=== PATIENT | male | born 1945 | race Caucasian/White ===

== ENCOUNTER 2025-02-12 14:11 | Emergency (ER) | payer MEDICARE, BC, SELFPAY ==
[2025-02-12 14:24] VITALS: BP 153/75; PULSE 68; RESP 18; TEMP 36.6; O2SAT 98
--- NOTE | 2025-02-12 14:28 | ED.SKABFB ---
HPI - Skin/Abscess/Foreign Bdy General Chief complaint: Skin/Abscess/Foreign Body Stated complaint: Rash Time Seen by Provider: 02/12/25 14:28 Source: patient, family, RN notes reviewed and old records reviewed Mode of arrival: ambulatory Limitations: no limitations History of Present Illness HPI narrative: 79 year old male accompanied by presents to express care with complaints of having rash to his lower anterior legs for the past month which is itchy at night. Patient reports that he gets this rash and it comes and goes usually during the winter months and has not responded to lotions that use to work. Patient has red areas on skin and appears to have scratches throughout the red skin areas, denies any pustule formation or any acute pain reports that it is itchy. Patient reports that he also has been taking a generic antihistamine but hasn't taken it for the last 2-3 days. MD complaint: rash Onset (ago): month(s) (1) Location: LLE (anterior) and RLE (anterior) Severity: moderate Quality: pruritic Treatments prior to arrival: Benadryl and other (Eucerin,Cortisone Gold gipson) Related Data Home Medications ?Medication ?Instructions ?Recorded ?Confirmed ?Last Taken ?Type finasteride 5 mg tablet mg 02/12/25 Unknown History tamsulosin 0.4 mg capsule mg PO 02/12/25 Unknown History Allergies Allergy/AdvReac Type Severity Reaction Status Date / Time No Known Allergies Allergy Verified 02/12/25 14:27 Review of Systems Review of Systems: CONSTITUTIONAL: Denies fever, chills, or sweats. CARDIOVASCULAR: Denies chest pain, palpitations, or edema. RESPIRATORY: Denies cough or dyspnea. SKIN: Reports bilateral red raised rash to bilateral anterior legs for the past month which is itchy. has had similar rash before which normally responds to OTC lotions but has not responded this time. MUSCULOSKELETAL: Denies joint pain or myalgia. NEUROLOGIC: Denies headache, numbness, or weakness. All systems reviewed & are unremarkable except as noted in HPI and below PMFSH Past Medical History Medical History (Updated 02/12/25 @ 15:18 by Jazlyn Amador APRN) BPH (benign prostatic hyperplasia) Social History Social History (Updated 02/12/25 @ 15:16 by Jazlyn L. Marjorie, GEOLOGICAL SAMPLE TESTER) Additional smoking assessment comments: never smoked Alcohol intake: never Substance use type: does not use Comments At time of signature, agree with nursing past medical, surgical, social and family history. There is no relevant family history pertinent to the presenting complaint Exam Narrative: GENERAL: Well-appearing, well-nourished, and in no acute distress. HEAD: Normocephalic, atraumatic. EYES: PERRLA, conjunctivae clear, and EOMI. ENT: Mucous membranes moist. Oropharynx without edema, erythema or lesions. NECK: Supple. No lymphadenopathy CHEST: Clear to auscultation. No respiratory distress.SAO2 98% on room air HEART: Regular rate and rhythm. SKIN: Warm, dry.? Patches of red raised rash to the bilateral anterior aspect of his lower legs which is itchy that appears to have scratches on skin, no drainage noted or pustules. NEURO:? Alert and oriented x3. PSYCH: Normal mood and affect Course Course Emergency Course: Patient is aware of diagnosis, understands and agrees to treatment plan.? Anticipatory guidance given.? Patient agrees to follow-up as directed and is aware of reasons to seek care at the emergency department. Portions of this record may have been created with voice recognition software Level of Care: Express Care Visit Vital Signs Vital signs: Vital Signs Temperature 36.6 C 02/12/25 14:24 Pulse Rate 68 02/12/25 14:24 Respiratory Rate 18 02/12/25 14:24 Blood Pressure 153/75 H 02/12/25 14:24 Pulse Oximetry 98 02/12/25 14:24 Oxygen Delivery Room Air 02/12/25 14:24 Temperature 36.6 C 02/12/25 14:24 Pulse Rate 68 02/12/25 14:24 Respiratory Rate 18 02/12/25 14:24 Blood Pressure 153/75 H 02/12/25 14:24 Pulse Oximetry 98 02/12/25 14:24 Oxygen Delivery Room Air 02/12/25 14:24 Reviewed MDM - Skin/Abscess/Foreign Bdy MDM Narrative Medical decision making narrative: Does not appear at this time to be erythema multiforme, bullous, SJS, TEN; no evidence at this time to suggest RMSF, endocarditis or Lyme disease; patient looks well, nontoxic and is tolerating oral intake; no neurologic signs or symptoms; no headache, photophobia or neck pain; afebrile; appropriate for initial outpatient treatment; discussed the importance of follow-up, patient agrees; question, viral exanthema, contact dermatitis, allergic dermatitis, eczema, urticaria, [ xx ]. No soft palate or uvula edema, no tongue, lip edema or other mucosal involvement, no respiratory compromise, no stridor, no wheezing, no wheezing, no history of syncope, no hypotension, no nausea, vomiting, or diarrhea.? Instructed patient to go to nearest ER immediately for any worsening symptoms including but not limited to: fever, spreading rash, pain, sore throat, headache, dizziness, chest pain, trouble breathing, or any symptoms concerning to the patient. Differential Diagnosis Differential diagnosis: Likely cellulitis, eczema, contact dermatitis and other (acute dry skin) Medical Records Attestation: I reviewed the patient's medical records. Critical Care Time Critical Care Time Critical Care Time: No Discharge Plan Discharge Clinical Impression: Contact dermatitis Qualifiers: Contact dermatitis type: allergic Contact dermatitis trigger: unspecified trigger Qualified Code(s): L23.9 - Allergic contact dermatitis, unspecified cause Patient Disposition: Home Condition: Stable Instructions: Antibiotic Form, Contact Dermatitis (ED) Additional Instructions: Cleanse skin of bilateral anterior lower legs twice daily with antibacterial soap rinse and pat dry. apply triamcinolone ointment BID up to 14 days watch for increasing infection--redness, swelling, drainage Tylenol or Ibuprofen for any fever or pain Zyrtec,Claritin or Fifi daily Pepcid 20 mg daily for 10 days follow up with PCP in 7-10 days for a wound check recheck if develop fever, chills, increasing symptom Go to the ER if your symptoms become worse of if ANY new symptoms develop If no improvement contact dermatology If your symptoms persist, change or worsen significantly before you can contact your personal physician then please, without delay, go to the emergency department for further evaluation. Follow-up with PCP in 7-10 days or sooner if needed Follow up with PCP soon in regards to your blood pressure which is elevated above threshold for referral. Blood pressure above 120/80 may indicate pre-hypertension. 153/75 Patient Language: Sammarinese Prescriptions: New triamcinolone acetonide 0.1 % ointment 1 applic topical BID Qty: 80 1RF Rx Instructions: to bilateral lower anterior legs famotidine [Pepcid] 20 mg tablet 20 mg PO DAILY Qty: 10 0RF No Action tamsulosin 0.4 mg capsule PO finasteride 5 mg tablet Follow-up/Referrals: Tamika,GRICELDA Baker [Primary Care Provider, Unknown] Time of Disposition: 14:49 Quality Jamul Coma Scale Eyes: Open Verbal: Oriented and Alert Motor: Follows Commands Es Coma Total Score: 15
--- OUTSIDE RECORDS SUMMARY | 2025-02-12 15:09 | XMS_ITS | Encounter Summary ---
Author Organization [facility] Address [address] [place] [address] Phone Care Team Providers Care Microbiology Coordinator Name Role Phone Galilea Velásquez MD Primary Care Provider Suhail Plaza MD Unavailable Lorraine Lundberg Primary Care Provider + Satish Raman Unavailable Unavailable Encounter Details Date Type Department Care Team (Late st Contact Info) Description 07/27/2022 Transcribe Orders [facility] Preop/Pacu II [address] [place] [address] Suhail Plaza MD #[address] [address] Pre-op testing (Primary Dx); Right inguinal hernia Social History Tobacco Use Types Packs/Day Years Used Date Smoking Tobacco: Never Smokeless Tobacco: Never Alcohol Use Standard Drinks/Week Comments Yes 0 (1 standard drink = 0.6 oz pur e alcohol) RARELY PHQ-2 Answer Date Recorded Total Score - Questions 1-9 0 03/0 07/2021 Sexually Active Control Partners Comments Yes Female Sex and Gender Information Value Date Recorded Sex Assigned at Not on file Legal Sex Male 10:50 PM CDT Gender Identity Not on file Sexual Orientation Not on file COVID-19 Exposure Response Date Recorded In the last 10 days, have yo u been in contact with someone who was confirmed or suspected to have Coronavirus/COVID-19? No / Unsure 07/27/2022 1:34 PM CDT documented as of this encounter Plan of Treatment Not on file documented as of this encounter Results * (ABNORMAL) BASIC METABOLIC PANEL W/ CALCIUM TOTAL (07/28/2022 1:54 PM CDT) SODIUM 143 136 - 144 mmol/L 07/28/2022 2:27 PM CDT [facility] POTASSIUM 4.4 3.5 - 5.1 mmol/L 07/28/2022 2:27 PM CDT [facility] CHLORIDE 108 100 - 110 mmol/L 07/28/2022 2:27 PM CDT [facility] CO2, VENOUS 29 22 - 32 mmol/L 07/28/2022 2:27 PM CDT [facility] ANION GAP 10.4 8.0 - 20.0 mmol/L 07/28/2022 2:27 PM CDT [facility] GLUCOSE 102(H) 70 - 99 mg/dL 07/28/2022 2:27 PM CDT [facility] BUN 17 8 - 23 mg/dL 07/28/2022 2:27 PM CDT [facility] CREATININE, BLOOD 1.02 0.80 - 1.30 mg/dL 07/28/2022 2:27 PM CDT [facility] BUN/CREATININE RATIO 17 12 - 20 ratio 07/28/2022 2:27 PM CDT [facility] CALCIUM 8.8(L) 8.9 - 10.3 mg/dL 07/28/2022 2:27 PM CDT [facility] IS THE PATIENT REQUIRED TO BE FASTING? No 07/28/2022 2:27 PM CDT [facility] GFR, ESTIMATED >60 >=60 07/28/2022 2:27 PM CDT [facility] Comment: Creatinine Clearance is the preferred criteria for selecting drug dose adjustments in renally impaired patients. The GFR is provided as additional pertinent clinical information. GFR is reported in mL/min/1.73 sq m. Calculation based on the Chronic Kidney Disease Epidemiology Collaboration (CKD- EPI) equation refit without adjustment for race. GFR, EST. >60 >=60 023 2:27 PM CDT [facility] GFR, EST. NONAFRICAN >60 >=60 07/28/2022 2:27 PM CDT [facility] Blood Venipuncture / Unknown 07/28/2022 1:54 PM CDT 07/28/2022 2:09 PM CDT us Suhail Plaza MD CHEMISTRY ORDERABLES Final Resul t [facility] [address] [place] [address] documented in this encounter Visit Diagnoses Diagnosis Pre-op testing- Primary Preoperative examination, unspecified Right inguinal hernia Inguinal hernia without mention of obstruction or gangrene, unilateral or unspecified, (not specified as recurrent) documented in this encounter Additional Health Concerns Assessment Noted Time PHQ-9 Depression Total Score: 0 07/21/19 17 1:00 PM CDT documented as of this encounter Care Teams Microbiology Coordinator Relationship Specialty Start Date End Date Galilea Velásquez MD PCP - General Family Medicine 07/20/16 07/27/23 Lorraine Lundberg PAC [address] [place] [address] PCP - General Physician Pattern Technician 07/28/23 Suhail Plaza MD [address] [address] Consulting Physician Colon and Rectal Surgery 07/20/22 Satish Raman 08/30/23 08/30/23 documented as of this encounter
--- OUTSIDE RECORDS SUMMARY | 2025-02-12 15:09 | XMS_ITS | Clinical Summary ---
Author Organization [facility] Address [address] [place] [address] Care Team Providers Care Blister Packing Machine Tender Name Role Phone Moises Flor MD Unavailable Lorraine Lundberg Primary Care Provider [phone] Allergies No known active allergies Medications ibuprofen (ADVIL,MOTRIN) 800 mg tablet take 1 tablet by oral route 3 times every day with food 0 0 08/26/2015 Active tamsulosin (FLOMAX) 0.4 mg extended release capsule 0.4 mg Active Active Problems Problem Noted Date Diagnosed Date Enlarged prostate with urinary obstruction 05/23 Overview (05/23/2021): Added automatically from request for surgery [id number] Renal cell carcinoma of left kidney 05/23/2021 Overview (05/23/2021): Added automatically from request for surgery [id number] Knee pain 08/26/2015 Overview (07/09/2016): Knee pain Surgical History Surgery Date Site/Laterality Comments PARTIAL NEPHRECTOMY Right HERNIA REPAIR Medical History Medical History Date Comments Hx Other Medical Right knee arth roscopic partial medial meniscectom; Comments: ALEKSANDAR 10/01/2015 - Cancer (HCC) kidney Family History Medical History Relation Name Comments Other Other Family history of cancer and arthritis.; Relation Name Status Comments Other Social History Tobacco Use Types Packs/Day Years Used Date Smoking Tobacco: Never AUDIT-C Answer Date Recorded Q1: How often do you have a drink containing alc ohol? 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 Gender Identity Not on file Sexual Orientation Not on file Last Filed Vital Signs Vital Sign Reading Time Taken Comments Blood Pressure 124/73 06/09/2021 8:26 AM RAILROAD SIGNAL AND SWITCH OPERATOR Pulse 85 06/09/2021 8:26 AM RAILROAD SIGNAL AND SWITCH OPERATOR Temperature 36.6 C (97.8 F) 06/09/2021 8:26 AM RAILROAD SIGNAL AND SWITCH OPERATOR Respiratory Rate 20 06/09/2021 8:26 AM RAILROAD SIGNAL AND SWITCH OPERATOR Oxygen Saturation 96% 06/09/2021 8:26 AM RAILROAD SIGNAL AND SWITCH OPERATOR Inhaled Oxygen Concentration - - Weight 88 kg (194 lb) 05/31/2021 9:55 AM RAILROAD SIGNAL AND SWITCH OPERATOR Height 185.4 cm (6' 1) 05/31/2021 9:55 AM RAILROAD SIGNAL AND SWITCH OPERATOR Body Mass Index 25.6 05/31/2021 9:55 AM RAILROAD SIGNAL AND SWITCH OPERATOR Plan of Treatment Health Maintenance Due Date Last Done Comments Depression Screening 1945 Hepatitis C Screening 1945 DTaP/Tdap/Td Vaccine (1 - Tdap) 1957 Hepatitis B Screening 1964 Pneumococcal vaccine 65+ (1 of 2 - PCV) 1965 Zoster Vaccine (1 of 2) 1996 Well Visit 65+ 07/23/2011 Fall Risk Assessment 06/09/2022 06/09/2021 Covid-19 Vaccine ( season) 12/02/202407/2020, 07/14/2020 Influenza Vaccine (#1) 2024 Medical Devices Implanted Type Area Rolling Mill Operator Device Identifier Shelf Expiration Date Model / Serial / Lot [employer] [id number] Urolift Implant Urological - [id number] Implanted:Qty: 6 on 06/08/2021 by Moises Flor MD at [facility] Prostate [employer] 04/14/2022 [id number] / / [id number] Insurance MEDICARE [facility] [place] [address] [place] [address] [employer] [place] MEDICARE [facility] FEDERAL Advance Directives For more information, please contact: [phone] * Full Code (Latest Code Status on File) Date Activated Date Inactivated Comments 06/08/2021 12:46 PM 06/09/2021 6:50 PM Care Teams Blister Packing Machine Tender Relationship Specialty Start Date End Date Lorraine Lundberg PA [address] [address] PCP - General Manufacturing Assistant 07/08/24 Moises Flor MD Consulting Physician Urology 06/09/21
--- OUTSIDE RECORDS SUMMARY | 2025-02-12 15:09 | XMS_ITS | Clinical Summary ---
Author Organization [facility] Address [address] [place] [address] Care Team Providers Care Manager Workers Compensation Name Role Phone Unavailable Primary Care Provider Unavailabl e Source Comments [facility],non-owned Affiliates and Associated Physician Practices is amultiple site organization consisting of ambulatory clinics and hospital sitesin [place], [place], [place] and [place]. This disclosure is being madepursuant to the Care Everywhere program and may not contain all information available regarding this patient. Last updated 17.[facility] [place] Social History Tobacco Use Types Packs/Day Years Used Date Smoking Tobacco: Never Assessed Sex and Gender Information Value Date Recorded Sex Assigned at Not on file Legal Sex Male 6:08 AM CHRONOMETER REPAIRER Gender Identity Not on file Sexual Orientation Not on file Plan of Treatment Health Maintenance Due Date Last Done Comments MEDICARE AWV 12 MONTHS 1945 HEPATITIS C SCREENING 07/17/1964 DTAP/TDAP/TD VACCINES (1 - Tdap) 1965 PNEUMOCOCCAL VACCINE 50+ (1 of 1 - PCV) 1996 ZOSTER VACCINE (1 of 2) 1996 Respiratory Syncytial Virus (RSV) Vaccine Pt: or over 60 yrs (1 - 1-dose 75+ series) 2021 DEPRESSION SCREENING 04/03/2024 COVID-19 VACCINE (3 - 2024-2 6 season) 2024 08/04/2020, 07/14/2020 INFLUENZA VACCINE (#1) 2024 HEPATITIS B VACCINE Aged Out No longe r eligible based on patient's age to complete this topic HIB VACCINE Aged Out No longer eligi ble based on patient's age to complete this topic HPV VACCINE Aged Out No longer eligi ble based on patient's age to complete this topic MENINGOCOCCAL (Group B) VACCINE SHARED DECISION-MAKING Aged Out No longer eligible based on patient's age to complete this topic MENINGOCOCCAL GROUPS A/C/Y/W VACCINE Aged Out No longer eligible b ased on patient's age to complete this topic [facility]
--- OUTSIDE RECORDS SUMMARY | 2025-02-12 15:09 | XMS_ITS | Clinical Summary ---
Author Organization [facility] Address [address] [place] [address] Phone Care Team Providers Care Section Beamer Name Role Phone Suhail Plaza MD Unavailable Lorraine Lundberg Primary Care Provider + Allergies Active Allergy Reactions Criticality Noted Date Comments Garcinia Cambogia Swelling 07/20/2016 HAND SWELLING Medications tamsulosin (FLOMAX) 0.4 MG Capsule 0.4 mg. 1 tab 1 Active acetaminophen (TYLENOL) 325 MG Tablet Take 1 Tablet by mouth every 6 hours as needed for Fever (for temperature greater than 100.4 F.). Do not exceed 4000 mg of acetaminophen in 24 hour from all sources. 3 Active Active Problems Problem Noted Date Diagnosed Date Bilateral recurrent inguinal hernia without obstruction or gangrene 08/01/2022 History of renal cell cancer 07/20/2016 Immunizations Immunization Administration Dates Next Due Covid-19, Mrna, Lnp-s, Pf, 30 Mcg/0.3 Ml Dose (P fizer) 08/04/2020,07/14/2020 Family History Medical History Relation Name Comments Heart Attack Brother 1 No Known Problems Brother 2 No Known Problems Daughter 1 No Known Problems Daughter 2 Dementia Father No Known Problems Maternal Grandfather No Known Problems Maternal Grandmother Pacemaker Mother Stroke Mother Heart Attack Paternal Grandfather No Known Problems Paternal Grandmother Breast Cancer Sister Cancer Sister No Known Problems Son Relation Name Status Comments Brother 1 Alive Brother 2 Alive Daughter 1 Alive Daughter 2 Alive Father Maternal Grandfather Maternal Grandmother Mother Paternal Grandfather Paternal Grandmother Sister Alive Son Alive Social History Tobacco Use Types Packs/Day Years Used Date Smoking Tobacco: Never Smokeless Tobacco: Never Tobacco Cessation:Counseling Given: Not Answered Alcohol Use Standard Drinks/Week Comments Yes 0 (1 standard drink = 0.6 oz pur e alcohol) RARELY PHQ-2 Answer Date Recorded Total Score - Questions 1-9 0 07/02 Sexually Active Control Partners Comments Yes Female Sex and Gender Information Value Date Recorded Sex Assigned at Not on file Legal Sex Male 10:50 PM CDT Gender Identity Not on file Sexual Orientation Not on file Last Filed Vital Signs Vital Sign Reading Time Taken Comments Blood Pressure 128/85 07/28/2023 10:30 AM CDT Pulse 55 07/28/2023 10:30 AM CDT Temperature 36 C (96.8 F) 07/28/2023 10:30 AM CDT Respiratory Rate 15 07/28/2023 10:30 AM CDT Oxygen Saturation 100% 07/28/2023 10:30 AM CDT Inhaled Oxygen Concentration - - Weight 87.1 kg (192 lb) 07/20/2023 9:52 AM CDT Height 182.9 cm (6') 07/20/2023 9:52 AM CDT Body Mass Index 26.04 07/20/2023 9:52 AM CDT Plan of Treatment Health Maintenance Due Date Last Done Comments Cologuard 1945 Immunochemical Fecal Occult Blood 1945 TdaP Immunization 1945 Pneumococcal Immunization (5 0+ years) (1 of 2 - PCV) 1965 Zoster Immunization (1 of 2) 1996 Medicare Initial AWV [id number] 07/02/2012 Respiratory Syncytial Virus (RSV) Immunization (Adult) (1 - 1-dose 75+ series) 2021 Influenza Immunization (#1) 2024 SARS-COV-2 Immunization ( - 2024- season) 2024 03/14/2021, 08/04/2020, 07/14/2020 Colonoscopy 07/27/2028 07/28/2023, 07/28/2023, 07/28/2023 Colorectal Cancer Screening 07/27/2028 Hepatitis B Immunization Aged Out No longer eligible based on patient's age to complete this topic Hepatitis C Virus (HCV) Screening Discontinued Human Papillomavirus (HPV) Immunization Aged Out No longer eligible based on patient's age to complete this topic Meningococcal Immunization (ACWY) Aged Out No longer eligible based on patient's age to complete this topic Rotavirus Immunization Aged Out No lo nger eligible based on patient's age to complete this topic Medical Devices Implanted Type Area Fairmont Gold Attendant Device Identifier Shelf Expiration Date Model / Serial / Lot Staple Tacker [employer] At - [id number] Implanted:Qty : 1 on 08/01/2022 by Suhail Plaza MD at [facility] IMPLANT Bilateral: Inguinal [employer] 01/25/2028 [id number] / [id number] / [id number] Mesh Srg 3dmax 6x4in Groin Right Contour Seal Edge Strl Polyp Lg 3d Curve Lapscp Inguinal Hernia - [id number] Implanted:Qty : 1 on 08/01/2022 by Suhail Plaza MD at [facility] IMPLANT Right: Inguinal [employer] 01/28/2027 [id number] / [id number] / [id number] Mesh Srg 3dmax 6x4in Groin Left Contour Seal Edge Strl Polyp Lg 3d Curve Lapscp Inguinal Hernia - [id number] Implanted:Qty : 1 on 08/01/2022 by Suhail Plaza MD at [facility] IMPLANT Left: Inguinal [employer] 01/28/2027 [id number] / [id number] / [id number] Procedures Procedure Name Priority Date/Time Associated Diagnosis Comments OPTOMETRY CONSULT 12/16/2024 12: 00 AM CDT GI IMAGING - COLONOSCOPY Routine 07/28/2023 8:44 AM CDT from Last 3 Months or Most Recently Relevant to Health Maintenance Results * OPTOMETRY CONSULT (12/16/2024 12:00 AM CDT) 12/16/2024 us Provider Scan GENERIC SCAN ORDERS CONSULT Allie l Result SCAN * GI IMAGING - COLONOSCOPY (07/28/2023 8:44 AM CDT) Suhail Plaza MD [facility] DIAGNOSTIC ORDERABLES Final Result from Last 3 Months or Most Recently Relevant to Health Maintenance Insurance MEDICARE [facility] Care Teams Section Beamer Relationship Specialty Start Date End Date Lorraine Lundberg PAC [address] [place] [address] PCP - General Physician Rn Spine 07/28/23 Suhail Plaza MD #[address] [address] Consulting Physician Colon and Rectal Surgery 07/20/22
== END 2025-02-12 15:08 | disposition home or self-care (01) ==
PROVIDERS: Emergency Provider Registered Nurse; PCP Physician Assistant
DX: L23.9 Allergic contact dermatitis, unspecified cause (principal); Z79.899 Other long term (current) drug therapy
CPT/HCPCS: 99213; G0463